=== PATIENT | male | born 1950 | race Caucasian/White ===

== ENCOUNTER → 2020-06-27 | Outpatient (REF) | payer MEDICARE, OTHER | LOC: M LAB REF 17:20 | PROVIDERS: ATTEND Dermatology | DX: C43.61 Malignant melanoma of right upper limb, including shoulder (principal) ==

== ENCOUNTER → 2020-07-18 | Outpatient (REF) | payer MEDICARE, OTHER | LOC: M LAB REF 16:24 | PROVIDERS: ATTEND Dermatology | DX: L90.5 Scar conditions and fibrosis of skin (principal); L82.1 Other seborrheic keratosis ==

== ENCOUNTER → 2021-04-09 | Outpatient (REF) | payer MEDICARE, OTHER | LOC: M LAB REF 17:43 | PROVIDERS: ATTEND Physician Assistant | DX: C44.41 Basal cell carcinoma of skin of scalp and neck (principal); D04.62 Carcinoma in situ of skin of left upper limb, including shoulder | CPT/HCPCS: 11102; 11103; 17000; 17003; 88305; G0463 ==

== ENCOUNTER → 2021-07-04 | Outpatient (REF) | payer MEDICARE, OTHER | LOC: M SFHCDERM 14:18 | PROVIDERS: ATTEND Dermatology | DX: C44.619 Basal cell carcinoma of skin of left upper limb, including shoulder (principal) ==

== ENCOUNTER → 2021-08-11 | Outpatient (REF) | payer MEDICARE, OTHER | LOC: M SFHCDERM 17:20 | PROVIDERS: ATTEND Physician Assistant | DX: C44.41 Basal cell carcinoma of skin of scalp and neck (principal) ==

== ENCOUNTER → 2022-04-28 | Outpatient (REF) | payer MEDICARE, OTHER | LOC: M SFHCDERM 14:27 | PROVIDERS: ATTEND Physician Assistant | DX: D22.5 Melanocytic nevi of trunk (principal) ==

== ENCOUNTER → 2022-06-26 | Outpatient (REF) | payer MEDICARE, OTHER | LOC: M SFHCDERM 14:31 | PROVIDERS: ATTEND Dermatology | DX: C44.619 Basal cell carcinoma of skin of left upper limb, including shoulder (principal); L90.5 Scar conditions and fibrosis of skin; L57.8 Other skin changes due to chronic exposure to nonionizing radiation ==

== ENCOUNTER → 2022-07-07 | Outpatient (REF) | payer MEDICARE, OTHER | LOC: M SFHCDERM 18:08 | PROVIDERS: ATTEND Physician Assistant | DX: C44.619 Basal cell carcinoma of skin of left upper limb, including shoulder (principal) ==

== ENCOUNTER → 2023-11-29 | Outpatient (REF) | payer MEDICARE, OTHER | LOC: M SFHCDERM 17:14 | PROVIDERS: ATTEND Physician Assistant | DX: C44.212 Basal cell carcinoma of skin of right ear and external auricular canal (principal); C44.729 Squamous cell carcinoma of skin of left lower limb, including hip ==

== ENCOUNTER → 2024-02-01 | Outpatient (REF) | payer MEDICARE, OTHER | LOC: M SFHCDERM 17:55 | PROVIDERS: ATTEND Physician Assistant | DX: L90.5 Scar conditions and fibrosis of skin (principal) ==

== ENCOUNTER → 2025-01-31 | Outpatient (REF) | payer MEDICARE, OTHER | LOC: M SFHCDERM 18:08 | PROVIDERS: ATTEND Physician Assistant | DX: D49.2 Neoplasm of unspecified behavior of bone, soft tissue, and skin (principal) ==